=== PATIENT | female | born 1930 | race Caucasian/White ===

== ENCOUNTER → 2016-07-01 | Outpatient (CLI) | payer MEDICARE, BC ==
--- NOTE | 2016-07-01 14:26 | RADRPT ---
PROCEDURE: XR Right hip and pelvis. CLINICAL INDICATION: Right hip pain and pelvic pain. TECHNIQUE: 3 views. Frontal pelvis. Frontal and lateral right hip. COMPARISON: 07/27/2015. FINDINGS: There is no fracture or dislocation. The soft tissues are normal. There are severe degenerative changes of the right hip with joint space narrowing, osteophytes, suba rticular sclerosis, and marked deformity superiorly. 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 The left hip is unremarkable. There is no lytic or blastic lesion. Surgical clips are present overlying the left lower quadrant of the abdomen. IMPRESSION: 1. 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 2. Prior left lower quadrant abdomen surgery. RPTAT: QQ .Colton Perry MD, MD Date Time Electronically viewed and signed by .Colton Perry MD, MD on 07/01/2016 14:26 .R/
== END | disposition home or self-care (01) ==
LOC: HKI 10:40
PROVIDERS: ATTEND Orthopaedic Surgery
DX: M16.11 Unilateral primary osteoarthritis, right hip (principal); M87.051 Idiopathic aseptic necrosis of right femur
CPT/HCPCS: 73502; G0463

== ENCOUNTER → 2016-07-29 | Outpatient (CLI) | payer MEDICARE, BC ==
[~2016-07-29] MED LIST: ACET-141 PO; AMLO-147 PO; BIOT10004 PO; CITRACAL PO; SACC250C PO; SOLI5TAB5 PO; SYN75 PO; VALS160T20 PO
== END | disposition home or self-care (01) ==
LOC: HKI 10:24
PROVIDERS: ATTEND Orthopaedic Surgery
DX: M25.551 Pain in right hip (principal); M16.11 Unilateral primary osteoarthritis, right hip; M87.051 Idiopathic aseptic necrosis of right femur
CPT/HCPCS: 87081; G0463

== ENCOUNTER 2016-08-04 06:27 | Inpatient (IN) | payer MEDICARE, BC ==
--- NOTE | 2016-07-29 19:18 | PREOPHP ---
DATE OF ADMISSION: 07/29/2016 TYPE OF CONSULTATION: Renal. REASON FOR CONSULTATION: Hyponatremia. HISTORY OF PRESENT ILLNESS: This 86-year-old female was originally referred to me by Dr. Santy Campbell, who is the patient's primary care physician and case aide. Dr. Campbell referred this patient to me because of hyponatremia. The patient was being evaluated by him in preparation for an upcoming surgery. The patient is scheduled for a right total hip replacement by Dr. Jigar Davison on 08/04/2016. The patient has severe osteoarthritis of the right hip and has decided to undergo a total hip replacement. The patient had laboratory test done by Dr. Campbell on 07/26/2016, and at that time she was found to have a serum sodium of 131 and a serum chloride of 97. The patient has been otherwise feeling well except for her chronic R hip pain. She denies a history of heart disease , kidney disease , chest pain or shortness of breath . The patient denies taking diuretics. She has not had any diarrhea, nausea, vomiting, etc. PAST MEDICAL HISTORY: Hypertension, hypothyroidism, nocturia, gastroesophageal reflux disease, insomnia, osteoarthritis. CURRENT MEDICATIONS: Include the followin. Amlodipine 10 mg a day. 2. Synthroid 75 mcg a day. 3. Valsartan 160 mg a day. 4. VESIcare 5 mg at bedtime. 5. Zantac 150 mg twice a day. 6. Tramadol 50 mg every 4 hours p.r.n. pain. 7. Tylenol PM at bedtime p.r.n. sleep. 8. Florastor 250 mg twice a day. ALLERGIES: SHE IS ALLERGIC TO PENICILLIN AND SHE HAS HAD PROBLEMS WITH LEVAQUIN CAUSING TENDON WEAKNESS AND PERIPHERAL NEUROPATHY. PAST SURGICAL HISTORY: Remarkable for tonsillectomy, ovarian cysts, cerebral hematoma resected, colon resection for diverticulitis. FAMILY HISTORY: Father is , diagnosed with heart disease. Mother is . Father had heart disease. Mother had dementia. SOCIAL HISTORY: The patient does not smoke. She was a former smoker but has not smoked for at least 10 years or more. She does drink wine once a day. OCCUPATION: Retired teacher. REVIEW OF SYSTEMS: CONSTITUTIONAL: No chills, no weight gain, no loss of appetite, no fever, no weakness, no weight loss, no fatigue. OPHTHALMOLOGIC: She has diminished vision. She does get monthly eye injection in the right eye for some retinal disease, not macular degeneration. CARDIORESPIRATORY: She denies any exertional chest pain, chest pressure, cough. She does have some chronic ankle swelling. GASTROINTESTINAL: She does have some history of gastroesophageal reflux disease. She does have some episodes of diarrhea and/or constipation. NEUROLOGIC: Bilateral lower extremity tingling and numbness. HEMATOLOGIC AND LYMPHATICS: Negative. DERMATOLOGIC: Negative. UROLOGIC: She does have nocturia which is helped by VESIcare. PHYSICAL EXAMINATION: GENERAL: At this time reveals an elderly female in no apparent distress. VITAL SIGNS: Temperature 99.6. Weight of 103. Blood pressure 116/57, heart rate of 70. HEENT: Head: Normocephalic. Eyes: Extraocular muscles intact. Nose and mouth are normal. NECK: Supple. No neck vein distention. HEART: Regular rhythm. No murmurs, gallops, or rubs. ABDOMEN: Soft, nontender. No masses or megaly. EXTREMITIES: Pedal pulses were 2+ bilaterally. She does have bilateral trace ankle edema, right greater than left. LABORATORY DATA: I did do some laboratory tests when I saw the patient. Her serum sodium in my office was 132, potassium 4.8, carbon dioxide 28, chloride 97. A B-natriuretic peptide was 80 , which is normal . Random cortisol was 11.2. Serum osmolality was 281. Urine sodium was 21. Her hemoglobin was 11.6 , hematocrit 35.4. White blood count was low at 2.3, which the patient says she has had a low white blood count for years. IMPRESSION: 1. Hyponatremia. This patient has mild hyponatremia. She is not currently taking any medication that would cause hyponatremia. She does have a low urine sodium which does suggest a salt-retaining state which could also be contributing to her peripheral edema. I was concerned about subclinical CHF ; however , the low BNP is against that diagnosis and her low urine sodium is against a diagnosis of SIADH . Her TSH level and serum cortisol are normal . The amlodipine could be contributing to her lower extremity edema . She did have a cardiac workup in November of 2015. At that time, she had a negative nuclear medicine cardiac stress test. From my standpoint she is cleared for surgery . I would recommend using isotonic solutions perioperatively. I would also try to limit the amount of fluid that she gets to try and correct the hyponatremia . 2. Anemia with iron deficiency. I did recommend to her that she start taking iron supplements . 3. Chronic leukopenia. 4. Hypertension. 5. Spastic urinary bladder. 6. Peripheral neuropathy. 7. Hypothyroidism. PLAN 1. The patient is cleared for upcoming right total hip replacement surgery . 2. Recommend isotonic solutions such as normal saline perioperatively. 3. I will follow the patient postoperatively. Dictated By: LAVON BROWN MD, ND/EDIN Conf#: [id number] DID#: [id number] MTDD
[2016-08-03 11:18] VITALS: Ht 151.1 cm; Wt 46.8 kg
[2016-08-04] VITALS (27 sets, daily range): BP systolic 79–153; BP diastolic 39–68; PULSE 58–72; RESP 10–22
[~2016-08-04] VITALS: Ht 151.1 cm; Wt 46.8 kg
[~2016-08-04 06:27] MED LIST changes: -ACET-141 PO; -AMLO-147 PO; -BIOT10004 PO; -CITRACAL PO; +PAIN COCKTAIL - VANCOMYCIN IRR ONE; -SACC250C PO; -SOLI5TAB5 PO; -SYN75 PO; -VALS160T20 PO
[2016-08-04] MEDS ORDERED: PREGABALIN 300 MG PO X1 PO ONE (06:30)
[2016-08-04] MEDS ORDERED: VANCOMYCIN 1 GM/NS 250 ML X1 BEFORE INCISION IVPB ONE (06:30)
[2016-08-04] MEDS ORDERED: SOD CHLORIDE 0.9% IV ONE (06:30)
[2016-08-04] MEDS ORDERED: oxyCODONE (CR) 10 MG TAB [oxyCONTIN] X1 DOSE PO ONE (06:30)
[2016-08-04] MEDS ORDERED: SOD CHLORIDE 0.9% IVPB ONE ×3 (06:30→17:30)
[2016-08-04] MEDS ORDERED: BUPIVACAINE LIPOSOME/PF 266 MG/20 ML VIAL INFIL ONE (06:30)
[2016-08-04] MEDS ORDERED: LACTATED RINGER'S 1,000 ML IV SCH ×2 (06:30→11:20)
[2016-08-04] MEDS ORDERED: CELECOXIB 400 MG PO X1 DOSE PO ONE (06:30)
[2016-08-04] MEDS ORDERED: TRANEXAMIC ACID IVPB ONE ×3 (06:30→17:30)
[2016-08-04] MEDS ORDERED: TRANEXAMIC ACID IV ONE (06:30)
[2016-08-04] MEDS ORDERED: traMADOL 50 MG TAB X 1 DOSE PO ONE (06:30)
[2016-08-04] MEDS ORDERED: ONDANSETRON 4 MG INJ IV ONE (06:30)
[2016-08-04] MEDS ORDERED: PAIN COCKTAIL-CEFUROXIME IRR SCH ×7 (07:00)
[2016-08-04] MEDS ORDERED: PROPOFOL 20 ML ONE (07:38)
[2016-08-04] MEDS ORDERED: CEFAZOLIN 1 GM INJ ONE (07:38)
[2016-08-04] MEDS ORDERED: NEOSTIGMINE 3 MG/3 ML SYRINGE ONE (07:38)
[2016-08-04] MEDS ORDERED: GLYCOPYRROLATE 0.4 MG INJ ONE (07:38)
[2016-08-04] MEDS ORDERED: ROCURONIUM 50 MG INJ ONE (07:38)
[2016-08-04] MEDS ORDERED: ONDANSETRON 4 MG INJ ONE (07:39)
[2016-08-04] MEDS ORDERED: FENTAnyl 50 MCG/ML VIAL ONE (07:39)
[2016-08-04] MEDS ORDERED: MIDAZOLAM 1 MG/ML 2 ML INJ ONE (07:39)
[2016-08-04] MEDS ORDERED: DEXAMETHASONE 4 MG/ML 1 ML INJ ONE (07:39)
[2016-08-04] MEDS ORDERED: KETOROLAC 30 MG INJ ONE (07:49)
--- NOTE | 2016-08-04 08:12 | HPN ---
Date/Time of Note Date/Time of Note DATE: 08/04/16 TIME: 08:12 Interval H&P Admission Note Pt. seen H&P reviewed: No system changes No change from H&P on 07/29/16 by VIOLET Thurman MD Aug 04, 2016 08:12
[2016-08-04] MEDS ORDERED: VALS160T20 PO (08:31)
[2016-08-04] MEDS ORDERED: AMLO-147 PO (08:32)
[2016-08-04] MEDS ORDERED: SYN75 PO (08:32)
[2016-08-04] MEDS ORDERED: SOLI5TAB5 PO (08:35)
[2016-08-04] MEDS ORDERED: ACET-141 PO (08:35)
[2016-08-04] MEDS ORDERED: VANCOMYCIN 1 GM INJ ONE (08:35)
[2016-08-04] MEDS ORDERED: POLYMYXIN B 500000 UNIT INJ ONE (08:35)
[2016-08-04] MEDS ORDERED: SODIUM CL BACTERIOSTATIC 30 ML INJ ONE (08:35)
[2016-08-04] MEDS ORDERED: BIOT10004 PO (08:36)
[2016-08-04] MEDS ORDERED: CITRACAL PO (08:36)
[2016-08-04] MEDS ORDERED: SACC250C PO (08:36)
[2016-08-04] MEDS ORDERED: HEPARIN 1000 UNITS/ML 10 ML INJ ONE (08:38)
[2016-08-04] MEDS ORDERED: BACITRACIN 50000 UNITS INJ ONE (08:52)
[2016-08-04] MEDS ORDERED: BACITRACIN 50000 UNITS INJ IRR ONE (09:51)
[2016-08-04] MEDS ORDERED: VANCOMYCIN 1 GM INJ IRR ONE (09:52)
[2016-08-04] MEDS ORDERED: POLYMYXIN B 500000 UNIT INJ IRR ONE (09:52)
[2016-08-04] MEDS ORDERED: HEPARIN 1000 UNITS/ML 10 ML INJ IRR ONE (09:54)
[2016-08-04] MEDS ORDERED: ETOMIDATE 20 MG INJ ONE (09:57)
[2016-08-04] MEDS ORDERED: PROPOFOL 100 ML ONE (09:57)
[2016-08-04] MEDS ORDERED: ONDANSETRON 4 MG INJ IV PRN ×2 (10:00→11:30)
[2016-08-04] MEDS ORDERED: EPHEDrine SULFATE 50 MG/5 ML SYG IV PRN (10:00)
[2016-08-04] MEDS ORDERED: OXYCODONE/ACETAMINOPHEN (5/325) TAB PO PRN ×2 (10:00)
[2016-08-04] MEDS ORDERED: LABETALOL HCL 20MG INJ IV PRN (10:00)
[2016-08-04] MEDS ORDERED: MEPERIDINE 25 MG INJ IV PRN (10:00)
[2016-08-04] MEDS ORDERED: MIDAZOLAM 1 MG/ML 2 ML INJ IV PRN (10:00)
[2016-08-04] MEDS ORDERED: DIPHENHYDRAMINE 50 MG INJ IV PRN (10:00)
[2016-08-04] MEDS ORDERED: hydrALAzine 20 MG INJ IV PRN (10:00)
[2016-08-04] MEDS ORDERED: TRIMETHOBENZAMIDE 100 MG/ML VIAL IM PRN (10:00)
[2016-08-04] MEDS ORDERED: HYDROmorphONE (0.2 MG/ML) 10ML SYG IV PRN ×3 (10:00)
[2016-08-04] MEDS ORDERED: FENTAnyl 50 MCG/ML VIAL IV PRN ×3 (10:00)
[2016-08-04] MEDS ORDERED: SODIUM CL BACTERIOSTATIC 30 ML INJ SC ONE (10:51)
[2016-08-04] MEDS ORDERED: HYDROCODONE/APAP (5/325) TAB PO PRN (11:30)
[2016-08-04] MEDS ORDERED: ASPIRIN (EC) 325 MG TAB PO ONE (11:30)
[2016-08-04] MEDS ORDERED: HYDROmorphONE 1 MG/ML SYG IV PRN (11:30)
[2016-08-04] MEDS ORDERED: DIPHENHYDRAMINE 25 MG CAP PO PRN (11:30)
[2016-08-04] MEDS ORDERED: BISACODYL 10 MG SUPP PR PRN (11:30)
[2016-08-04] MEDS ORDERED: NACL 0.9% 3 ML SYG IV SCH (11:30)
[2016-08-04] MEDS ORDERED: NA PHOSPHATE/BIPHOS 133 ML ENEMA PR PRN (11:30)
--- NOTE | 2016-08-04 11:30 | OPR ---
Date/Time of Note Date/Time of Note DATE: 08/04/16 TIME: 11:29 Operative Report Free Text/Dictation Dictation # [id number] Preoperative Diagnosis Right Hip OA Postoperative Diagnosis Same Operation/Procedure Performed Right Anterior DON Surgeon: VIOLET MCKENNA MD assistant shift supervisor: CIERRA HUTTON PA-C Anesthesia: general, spinal Estimated Blood Loss: 250 - 300 ml's Specimens Femoral Head Complications: None VIOLET MCKENNA MD Aug 04, 2016 11:30
--- NOTE | 2016-08-04 11:50 | OPR ---
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 OPERATION PERFORMED: Right anterior total hip arthroplasty. SURGEON: Violet Davison MD PRODUCTION AIDE: ERICA Montoya COMPONENTS USED: DePuy size 48 mm Gription Sparland cup, 48/32 neutral AltrX polyethylene liner siz e 4 standard DISPOSITION: The patient tolerated the procedure well and was taken to the recovery room in stable condition. INDICATIONS: The patient is an 86-year-old woman who has had worsening pain in the right hip with r adiographic evidence of both osteonecrosis with collapse and secondary osteoarthritic changes. She has not improved with nonsurgical means of treatment and I felt she would benefit from a total hip a rthroplasty through an anterior approach. I felt the patient would benefit from a total hip arthroplasty through an anterior approach. The risks, benefits, and alternatives of the procedure were explained in detail to the patient. I e xplained the risks of the surgery to include, but not be limited to: bleeding and possible need for blood transfusion; infection; pain; stiffness; neurovascular injury with possible numbness, weakness , and/or paralysis anywhere from the hip down to the toes; fracture; instability; dislocation; leg l ength inequality; wear and/or loosening of the prosthesis and possible need for future revision; blo od clots; pulmonary embolism; and anesthetic complications such as heart attack, stroke, GI bleed, p neumonia, and/or . Ample time was allowed for the patient to ask questions, all of which were addressed and answered. The patient understood the risks involved and wished to proceed. Informed c onsent was signed prior to the procedure. PROCEDURE: The patient's right hip was initialed with a marking pen in the preoperative area to iden tify the correct operative site. The patient was brought to the operating room and transferred from the [facility] to the [facility] table where a spinal anesthetic was administered. The patient was then anesthetized and intubated. A Goode catheter was placed. Both feet were placed into well-padd ed boots which were then placed into the leg holders of the traction booms. A timeout was performed to confirm that the right side was the correct operative site. The patient was given 2 g of intrav enous Ancef within one hour prior to the procedure. The operative hip was prepped and draped in the usual sterile fashion. A 10 cm oblique incision was made over the anterior aspect of the hip and carried down through subcu taneous tissue and fat with sharp dissection. The tensor fascia aakash was incised along the length o f the wound. The tensor fascia muscle was retracted laterally and the sartorius medially. The anter ior circumflex vessels were identified and tied off with 2-0 silk suture and coagulated with the [employer] software engineer web applications. The rectus femoris was elevated off the anterior capsule and an anterior capsu lectomy performed. A femoral neck osteotomy was made and the head removed from the acetabulum. The acetabulum was denuded of cartilage circumferentially, as was the femoral head. Retractors were pl aced around the acetabulum. The remnants of the labrum and ligamentum teres were excised. I reamed the acetabulum to the medial wall and then went into an anatomic position and increased the reamer size in 2 mm increments until I got a good bite and was down to bleeding subchondral bone. The Sparland cup was opened and impacted into the acetabulum and sat flush circumferentially, gettin g a good bite. C-arm imaging showed it had about 40 to 45 degrees of abduction and 20 degrees of ant eversion. The real liner was opened and impacted into the acetabulum and sat flush circumferentiall y. Attention was turned towards the femur. The operative leg was carefully lowered to the floor with the leg adducted. The foot was then exter sanjuana rotated to approximately 110 degrees. A posteromedial release was performed to optimize expos ure. The femoral hook was placed underneath the proximal femur and the hydraulic lift was then used to elevate the femur up out of the wound. The [employer] cutter osteotome was used to remove the remai brett overhanging greater trochanter. The femur was then broached, going up in one size increments u ntil it sat flush with the neck cut and a stable fit was achieved. The trial neck and head were ass embled and reduced into the acetabulum. Fluoroscopic imaging showed the components to be in good pos ition and the leg lengths and offsets to be equal. At this point, the trial was dislocated and the trial broach removed. The canal was irrigated and d ried. The real stem was opened and impacted into the femur. The trunnion was irrigated and dried, a nd the real femoral head was impacted onto the trunnion, and reduced into the acetabulum. The soft tissues were infiltrated with a mixture of 150 mg of 0.5% Bupivacaine, 8 mg of Duramorph, 3 00 mcg of epinephrine, 30 mg of Toradol, 100 mcg of clonidine, 750 mg of cefuroxime and 86 mL of nor mal saline, followed by an injection of 266 mg of liposomal Bupivacaine. At this point the hip was irrigated with a mixture of betadine/saline and then antibiotic saline with pulsatile lavage. A Hem ovac drain was placed in the deep portion of the wound and brought out the anterolateral thigh. Ther e was good hemostasis. The tensor fascia aakash was repaired with a running #1 Vicryl. The deep fat layer was irrigated and closed with 2-0 Stratafix and the subcutaneous layer closed with 3-0 Vicryl and the skin was closed with laurie and then sealed with Dermabond. The drain was secured with 3-0 nylon. The sponge and needle counts were correct at the end of the case. The wound was covered with an occ lusive dressing. The patient was awakened, extubated, and taken to the recovery room in stable cond ition. Dictated By: VIOLET AHUMADA/EDIN Conf#: [id number] DID#: [id number]
--- NOTE | 2016-08-04 11:54 | PN ---
Date/Time of Note Date/Time of Note DATE: 08/04/16 TIME: 11:53 Assessment/Plan Assessment/Plan Assessment/Plan Stable in PACU, s/p right anterior DON -continue Ancef until drains removed -pain meds as needed -ASA/SCDs for DVT prophylaxis -OOB with PT -check AM labs -monitor drain -d/c le in AM XR of the right hip demonstrates good alignment with no fractures or dislocations identified Subjective 24 Hr Interval Summary Stable in PACU. Denies pain. Moving all extremities. Exam/Review of Systems Vital Signs Vitals Vital Signs Date Time Temp Pulse Resp B/P Pulse Ox O2 Delivery O2 Flow Rate FiO2 08/04/16 11:38 66 13 116/54 98 Room Air 08/04/16 11:37 98.4 Exam Free Text/Dictation Hemovac: minimal Dressing dry Incision clean, dry, and intact without redness or drainage 5/5 Quadriceps, Tibialis Anterior, EHL, Gastroc, Soleus, Peroneals Normal sensation Palpable DT/PT, CR <2 sec No distal edema CIERRA HUTTON PA-C Aug 04, 2016 11:54
[2016-08-04 11:55] LABS: ADD UMIC YES; UR BILIRUBIN (Dip) NEGATIVE (NEGATIVE); UR BLOOD (Dip) TRACE (NEGATIVE); UR CLARITY CLEAR (CLEAR); UR COLOR LT. YELLOW (YELLOW); UR GLUCOSE (Dip) NEGATIVE (NEGATIVE); UR KETONES (Dip) NEGATIVE (NEGATIVE); UR LEUKOCYTE ESTERASE (Dip) NEGATIVE (NEGATIVE); UR NITRITE (Dip) NEGATIVE (NEGATIVE); UR TOTAL PROTEIN (Dip) NEGATIVE (NEGATIVE); UR UROBILINOGEN (Dip) 0.2 E.U./dL (0.1-1.0)
[2016-08-04 12:11] LABS: HEMATOCRIT 31.4 % (37.0-47.0)
[2016-08-04] MEDS: CEFAZOLIN 2 GM/50 ML (PMX) 50 ML IVPB SCH ×2 (12:22→21:02)
[2016-08-04] MEDS: traMADol 50 MG TAB PO SCH ×3 (12:28→23:37)
[2016-08-04 12:29] LABS: CALCIUM 8.3 mg/dl (8.4-10.2); CREATININE 0.79 mg/dl (0.44-1.00); POTASSIUM 4.1 mmol/L (3.5-5.1)
[2016-08-04 12:40] LABS: URINE RBCS 0-2 /HPF (0)
--- NOTE | 2016-08-04 13:23 | RADRPT ---
PROCEDURE: XR Pelvis. CLINICAL INDICATION: Hip pain TECHNIQUE: Single low AP view of the pelvis. COMPARISON: July 01, 2016 FINDINGS: Right hip replacement is identified. The prosthetic components are in appropriate position and alig nment. The osseous structures are intact. No destructive bony lesions are observed. Osteopenia is observed. Mild narrowing of the left hip joint is identified. Surgical drain is identified over th e right hip. Soft tissue air over the right hip is procedural in nature. Goode catheter is seen ov er the lower pelvis.. IMPRESSION: Right hip replacement. Prosthetic components are in appropriate position and alignment. Mild osteoarthritis of the left hip. Osteopenia. RPTAT: AA .Diony Phillip MD, Date Time Electronically viewed and signed by .Diony Phillip MD, on 08/04/2016 13:23 .P/
--- NOTE | 2016-08-04 13:24 | RADRPT ---
PROCEDURE: X-ray fluoroscopy guidance CLINICAL INDICATION: Right hip replacement, fluoroscopic guidance TECHNIQUE: Fluoroscopic guidance was utilized for an intraoperative procedure. COMPARISON: None available FINDINGS: Fluoroscopic guidance was utilized for and intraoperative procedure. 0.6 minutes of fluoroscopy time was utilized for the procedure. 18 x-ray images were obtained during the procedure in progress. Fin al images demonstrate a right hip replacement. Prosthetic components appear in appropriate position and alignment. IMPRESSION: X-ray fluoroscopic guidance utilized for intraoperative procedure. Right hip replacement with prosthetic components in appropriate position and alignment. Please see procedure note for details. RPTAT: AA .Diony Phillip MD, Date Time Electronically viewed and signed by .Diony Phillip MD, on 08/04/2016 13:24 .P/
--- NOTE | 2016-08-04 13:46 | RADRPT ---
PROCEDURE: XR Right Hip. CLINICAL INDICATION: Status post hip replacement TECHNIQUE: AP view of the right hip was obtained. The images reviewed on a PACS workstation. COMPARISON: July 01, 2016 FINDINGS: Right hip replacement is identified. Prosthetic components are in appropriate position and alignmen t. No fractures or destructive lesions are observed. Surgical drain is seen in the hip. Soft tissu e air is procedural in nature. IMPRESSION: Status post right hip replacement. Prosthetic components are in appropriate position and alignment. RPTAT: AA .Diony Phillip MD, Date Time Electronically viewed and signed by .Diony Phillip MD, on 08/04/2016 13:46 .P/
[2016-08-04] MEDS: SOD CHLORIDE 0.9% 1,000 ML IV SCH ×2 (14:32→23:37)
--- NOTE | 2016-08-04 14:38 | CONS ---
DATE OF ADMISSION: 08/04/2016 DATE OF CONSULTATION: 08/04/2016 TYPE OF CONSULTATION: Renal REASON FOR CONSULTATION: Hyponatremia. HISTORY OF PRESENT ILLNESS: This 86-year-old female is now postop a right total hip arthroplasty by Dr. Jigar Davison. The patient has just transferred from the recovery room to the orthopedic floor. She is awake and alert and answers questions appropriately. The patient is with her daughter and niece. The patient says that she feels well. She denies any chest pain or shortness of breath. I did see the patient preoperatively because of hyponatremia. She was referred to me by her primary care bonus clerk, Dr. Santy Campbell. The patient had a serum sodium of 131 in his office. I repeated it, it was 132. She had a normal TSH and cortisol level. I felt that her hyponatremia was dilutional. She did have some lower extremity edema. She does not have evidence of congestive heart failure and she had a low urine sodium. I recommended that the patient limit her fluid intake. She was cleared for this surgery. The patient denies a history of heart disease, kidney disease, chest pain or shortness of breath. The patient was not on diuretics and her preoperative medication was reviewed and was not thought to be causing the hyponatremia. PAST MEDICAL HISTORY: Remarkable for hypertension, hypothyroidism, nocturia, gastroesophageal reflux disease, insomnia and osteoarthritis. CURRENT MEDICATIONS: Include the followin. Amlodipine 10 mg a day. 2. Synthroid 75 mcg a day. 3. Valsartan 160 mg a day. 4. VESIcare 5 mg at bedtime. 5. Zantac 150 mg twice a day. 6. Tramadol 50 mg every 4 hours p.r.n. pain. 7. Tylenol PM at bedtime. 8. Florastor 250 mg twice a day. ALLERGIES: 1. SHE IS ALLERGIC TO PENICILLIN. 2. SHE HAS HAD PROBLEMS WITH LEVAQUIN CAUSING TENDON WEAKNESS AND PERIPHERAL NEUROPATHY. PAST SURGICAL HISTORY: Remarkable for tonsillectomy, ovarian cysts, cerebral hematoma resected, colon resection for diverticulitis. FAMILY HISTORY: Father is with heart disease. Mother is with dementia. SOCIAL HISTORY: The patient does not smoke. She was a former smoker, but has not smoked for at least 10 years. She does drink wine once a day. OCCUPATION: Retired teacher. PHYSICAL EXAMINATION: GENERAL: At this time reveals a well-developed female in no apparent distress. VITAL SIGNS: Her latest vital signs: Pulse 62, respirations 12, blood pressure 103/40, O2 saturation 96% on room air. HEENT: Head normocephalic. Eyes: Extraocular muscles intact. Nose and mouth are normal. NECK: Supple. No neck vein distention. LUNGS: Clear to auscultation. HEART: Regular rhythm. No murmurs, gallops or rubs. ABDOMEN: Soft, nontender. EXTREMITIES: No peripheral edema. IMPRESSION: 1. Hyponatremia. 2. Relative hypotension. 3. History of hypertension. 4. Hypothyroidism. 5. Spastic bladder. PLAN: 1. I will change the patient's IV fluid to normal saline. I think an isotonic solution would be better for her in view of the history of hyponatremia. 2. Resume some routine medications. I will hold antihypertensive medications for now since her blood pressure is relatively low. 3. Postoperative total hip replacement protocol. Check laboratory tests in am . 4. I will follow the patient along with you. Dictated By: LAVON BROWN MD, ND/EDIN Conf#: [id number] DID#: [id number] HARIKA
[2016-08-04] MEDS ORDERED: EXPAREL NOTE (BUPIVICAINE LIPOSOMAL) XX SCH (16:00)
[2016-08-04] MEDS: PANTOPRAZOLE (EC) 40 MG TAB PO SCH (18:00)
[2016-08-04] MEDS: DOCUSATE SODIUM 100 MG CAP PO SCH (21:02)
[2016-08-05] MEDS: CEFAZOLIN 2 GM/50 ML (PMX) 50 ML IVPB SCH (04:03)
[2016-08-05 04:09] VITALS: BP 111/54; PULSE 65; RESP 16
[2016-08-05 05:33] LABS: HEMATOCRIT 29.4 % (37.0-47.0); HEMOGLOBIN 9.4 g/dl (12.0-16.0)
[2016-08-05 05:43] LABS: CALCIUM 8.4 mg/dl (8.4-10.2); CREATININE 0.75 mg/dl (0.44-1.00); POTASSIUM 4.7 mmol/L (3.5-5.1)
[2016-08-05] MEDS: traMADol 50 MG TAB PO SCH ×3 (06:00→17:52)
[2016-08-05] MEDS: LEVOTHYROXINE 75 MCG TAB PO SCH (06:08)
[2016-08-05] MEDS: PANTOPRAZOLE (EC) 40 MG TAB PO SCH ×2 (06:08→17:52)
--- NOTE | 2016-08-05 06:56 | PREOPHP ---
DATE OF ADMISSION: 08/04/2016 The patient is scheduled for surgical procedure, a right anterior total hip arthroplasty with Dr. Rich Flores. The patient has severe pain in her right hip with osteoarthritis. The patient carries t he diagnoses of hypertension, hypothyroidism, mitral insufficiency, history of a subdural hematoma w ith evacuation and craniotomy. The patient has tendonitis of the feet. She has mild mitral and aor tic insufficiency, history of diverticular disease, history of coronary arterial sclerosis, history of presbycusis, history of scarlet fever at age 7, and history of chronic leukopenia. Most recently , the patient also had a diagnosis of hyponatremia, and she was seen by Dr. Leroy Givens for preo perative clearance. PAST SURGICAL HISTORY: The patient's surgeries included the craniotomy, colon resection for diverti cular disease, tonsillectomy, ovarian resection, and breast biopsy. The patient has had surgeries o n her anterior tibial ligaments, right and left, secondary to tears. ALLERGIES: SHE IS ALLERGIC TO SULFA, PENICILLIN, AND LEVAQUIN. FAMILY HISTORY: The patient's mother at 96 with dementia. The patient's father of myocar dial infarction at 88. The patient has a 30 pack year cigarette smoking history. She has 1 alcohol beverage a day. She was born in [place], [place]. REVIEW OF SYSTEMS: HEENT: The patient denies double vision, blurring of vision. She denies diminished hearing, ringin g in the ears. She denies postnasal drip or nosebleeds. She reports some hoarseness. CHEST: Otherwise, she denies sore throat or symptoms of the upper respiratory system. The patient denies cough, sputum production. She has had some chest pain but has had a negative stress test mos t recently. GASTROINTESTINAL: The patient denies gastrointestinal symptoms. GENITOURINARY: The patient reports nocturia. She is currently on VesiCare. The patient is a gravi da 0, para 0, AB 0. MUSCULOSKELETAL: The patient has some cramps in her hands. She also has severe pain in her hip as previously noted. SKIN: The patient denies rashes. NEUROLOGIC: The patient denies numbness, weakness, tingling, gait or speech disturbance. She denie s excessive bleeding. PHYSICAL EXAMINATION: GENERAL: Reveals a pleasant elderly patient who is awake, alert, and cooperative. VITAL SIGNS: Her blood pressure is 140/70. The patient is 4 feet 10 inches. She weighs 102 pounds . HEENT: The patient's pupils are equal at 2 mm. The patient has otto irises. The patient uses hea ring aids right and left side. Mouth is unremarkable. NECK: Unremarkable. CHEST: Reveals no rales, rhonchi, wheezes, or adventitious breath sounds. CARDIAC: Reveals a regular rhythm. No gallops, no murmurs. ABDOMEN: Reveals a soft abdomen. No masses. No tenderness. EXTREMITIES: No edema. LYMPHATIC: There is on neck, axillary, or groin lymphadenopathy. NEUROLOGIC: Cranial nerves II through XII are within normal limits. The patient has 2+ deep tendon reflexes. Good ____, good vibratory sense. The patient is not ambulating because of pain in her h ip. Dr. Santy Rubi MD dictating Pre-Opeerative History and Physical for Dr. Violet Davison MD. Dictated By: VIOLET AHUMADA/NTS Conf#: [id number] DID#: [id number]
[2016-08-05 07:00] VITALS: BP 119/62; RESP 18
--- NOTE | 2016-08-05 08:13 | PDOCDIS ---
Discharge Instructions DIAGNOSIS Discharge Diagnosis: s/p right anterior DON CONDITION Patient Condition: Good HOME CARE INSTRUCTIONS: Diet Instructions: RegularSpecial Diet: REGULAR DIET ACTIVITY: Activity Restrictions: Slowly Increase Activity Rest between Activity Avoid heavy lifting Do not operate Machinery Do not operate Power Tool Avoid Heavy Housework Keep Limb Elevated Weight Bearing Bathing Restrictions: Shower FOLLOW UP/APPOINTMENTS Appointments follow up in the office on 08/15/16 REFERRALS Other Referrals S/P Anterior DON Physical Therapy: Three times per week at home x 2 weeks Daily in Rehab/SNF WB STATUS: WBAT Strengthening exercises for both upper and un-operated lower extremities. 1. Gait training with front wheeled walker 2. Wide base gait, no pivot turns. 3. Abductor strengthening. 4. Quadriceps and hamstring strengthening. 5. May switch to cane in contra lateral hand 6 weeks after surgery. 6. Physical Therapy can open case if nursing is not available. 7. Ice Packs while at rest to surgical wound for 20 minutes, 3 times/day. 8. Patient requires mobile SCDs to reduce risk of developing DVT following DON. Patient will use the mobile SCDs for 30 days postoperatively. Hip Precautions: No posterior hip precautions. Bathing assistance by home health aide twice weekly if Medicare patient. Occupational Therapy: Evaluation for assistive devices and ADL training. Wound Care: Keep incision dry & covered with Tegaderm until first visit with Dr. Davison Anticoagulation Orders: Enteric Coated Aspirin 325 mg po bid x 6 weeks from date of surgery Follow-up:Call for an appointment with Dr. Davison in 1 week after discharged from hospital at DME Orders: NHI, 3-in-1 Commode, Mobile SCDs CIERRA HUTTON PA-C Aug 05, 2016 08:13
[2016-08-05] MEDS ORDERED: ASPI325T32 PO (08:15)
[2016-08-05] MEDS ORDERED: PANT40TA4 PO (08:15)
[2016-08-05] MEDS ORDERED: HYDR-3498 PO (08:15)
[2016-08-05] MEDS ORDERED: TRAM50TA2 PO (08:15)
[2016-08-05] MEDS: DOCUSATE SODIUM 100 MG CAP PO SCH ×2 (08:53→21:01)
[2016-08-05] MEDS: ASPIRIN (EC) 325 MG TAB PO SCH ×2 (08:53→21:00)
[2016-08-05] MEDS ORDERED: SOLIFENACIN 5 MG TAB PO SCH (09:00)
[2016-08-05] MEDS ORDERED: VALSARTAN 160 MG TAB PO SCH (09:00)
[2016-08-05] MEDS ORDERED: AMLODIPINE 10 MG TAB PO SCH (09:00)
--- NOTE | 2016-08-05 09:00 | PN ---
Date/Time of Note Date/Time of Note DATE: 08/05/16 TIME: 08:59 Assessment/Plan Lines/Catheters IV Catheter Type (from Nrsg): Peripheral IV Goode in Place (from Nrsg): Yes Assessment/Plan Assessment/Plan Stable POD #1, s/p right anterior DON -d/c abx -pain meds as needed -ASA/SCDs -drain removed -OOB with PT -check AM labs -d/c planning. Will plan to go to [facility] upon discharge Subjective 24 Hr Interval Summary No acute overnight events. Denies pain. Did not start PT yesterday. H&H stable. VSS, afebrile. Would like to go to [facility] upon discharge. Exam/Review of Systems Vital Signs Vitals Vital Signs Date Time Temp Pulse Resp B/P Pulse Ox O2 Delivery O2 Flow Rate FiO2 08/05/16 07:00 97.7 62 18 119/62 95 08/05/16 04:09 Room Air Intake and Output 08/04/16 08/04/16 08/05/16 15:00 23:00 07:00 Intake Total 2700 ml 220 ml 850 ml Output Total 970 ml 800 ml 770 ml Balance 1730 ml -580 ml 80 ml Exam Free Text/Dictation Hemovac: 140cc Dressing dry Incision clean, dry, and intact without redness or drainage 5/5 Quadriceps, Tibialis Anterior, EHL, Gastroc, Soleus, Peroneals Normal sensation Palpable DT/PT, CR <2 sec No distal edema Results Result Diagram: 08/05/1641908/05/16419 CIERRA HUTTON PA-C Aug 05, 2016 09:00
--- NOTE | 2016-08-05 09:13 | CONS ---
Date/Time of Note Date/Time of Note DATE: 08/05/16 TIME: 09:09 Assessment/Plan Assessment/Plan Chief Complaint/Hosp Course 1. She is 1 day postop a right total hip arthroplasty , her blood pressure is in the normal range. I will hold her antihypertensive medication for 1 more day. 2. Her laboratory tests are acceptable and her serum sodium is normal. 3. She does have a history of anemia and iron deficiency. I will check her iron level today and consider Ferrlicit Problems: Consultation Date/Type/Reason Admit Date/Time Aug 04, 2016 at 06:27 Initial Consult Date 24 HR Interval Summary Free Text/Dictation She is 1 day postop a right total hip arthroplasty. She is awake and responsive. She has no complaints. Constitutional: improved, no complaints Exam/Review of Systems Vital Signs Vitals Vital Signs Date Time Temp Pulse Resp B/P Pulse Ox O2 Delivery O2 Flow Rate FiO2 08/05/16 07:00 97.7 62 18 119/62 95 08/05/16 04:09 Room Air Intake and Output 08/04/16 08/04/16 08/05/16 14:59 22:59 06:59 Intake Total 2700 ml 220 ml 850 ml Output Total 970 ml 800 ml 770 ml Balance 1730 ml -580 ml 80 ml Exam Constitutional: alert, oriented, well developed Respiratory: clear to auscultation, normal air movement Cardiovascular: regular rate and rhythm Gastrointestinal: soft Musculoskeletal: nl extremities to inspection Results Result Diagram: 08/05/16 0420 08/05/16 0420 Results 24 hrs Laboratory Tests Test 08/04/16 11:29 08/04/16 12:00 08/04/16 12:02 08/05/16 04:20 Urine Color LT. YELLOW Urine Clarity CLEAR Urine pH 6.0 Urine Specific [place] 1.010 Urine Ketones NEGATIVE Urine Nitrite NEGATIVE Urine Bilirubin NEGATIVE Urine Urobilinogen 0.2 E.U./dL Urine Leukocyte Esterase NEGATIVE Urine Microscopic RBC 0-2 Urine Microscopic WBC NONE SEEN Urine Hemoglobin TRACE Urine Glucose NEGATIVE Urine Total Protein NEGATIVE Sodium Level 137 138 Potassium Level 4.1 4.7 Chloride Level 108 108 Carbon Dioxide Level 23 23 Anion Gap 10 12 Blood Urea Nitrogen 19 18 Creatinine 0.79 0.75 Glucose Level 152 121 Calcium Level 8.3 L 8.4 Hemoglobin 10.0 L 9.4 L Hematocrit 31.4 L 29.4 L Test 08/05/16 05:32 Lab Scanned Report REFERENCE LAB Medications Medications Current Medications Miscellaneous Information 1 ea NOTE XX ; Start 08/04/16 at 16:00; Stop 08/08/16 at 15:59 Tramadol HCl (Ultram) 50 mg Q6 PO Last administered on 08/04/16 23:37; Admin Dose 50 MG; Start 08/04/16 at 12:00; Stop 08/07/16 at 11:59 Acetaminophen/ Hydrocodone Bitart ([place] (5/325)) 1 tab Q4H PRN PO PAIN LEVEL 1 -3; Start 08/04/16 at 11:30 Acetaminophen/ Hydrocodone Bitart ([place] (5/325)) 2 tab Q4H PRN PO PAIN LEVEL 4 -7; Start 08/04/16 at 11:30 Hydromorphone HCl (Dilaudid) 1 mg Q3H PRN IV PAIN LEVEL 8-10; Start 08/04/16 at 11:30 Ondansetron HCl (Zofran Inj) 4 mg Q6H PRN IV NAUSEA AND/OR VOMITING; Start at 11:30 Bisacodyl (Dulcolax Supp) 10 mg Q12H PRN [place] CONSTIPATION; Start 08/04/16 at 11: 30 Magnesium Hydroxide (Milk Of Mag) 30 ml BID PRN PO CONSTIPATION; Start at 11:30 Sodium Biphosphate/ Sodium Phosphate (Fleet Enema) 133 ml DAILY PRN [place] CONSTIPATION; Start 08/04/16 at 11:30 Docusate Sodium (Colace) 100 mg BID PO Last administered on 08/05/16 08:53; Admin Dose 100 MG; Start 08/04/16 at 21:00 Diphenhydramine HCl (Benadryl) 25 mg Q6H PRN PO PRURITUS; Start 08/04/16 at 11: 30 Aspirin (Ecotrin) 325 mg BID PO Last administered on 08/05/16 08:53; Admin Dose 325 MG; Start 08/05/16 at 09:00 Pantoprazole 40 mg 40 mg BID@06,18 PO Last administered on 08/05/16 06:08; Admin Dose 40 MG; Start 08/04/16 at 18:00 Sodium Chloride (NS) 1,000 ml @ 100 mls/hr Q10H IV Last administered on t 23:37; Admin Dose 100 MLS/HR; Start 08/04/16 at 14:00 LAVON BROWN MD Aug 05, 2016 09:13
[2016-08-05] MEDS: SOD CHLORIDE 0.9% 1,000 ML IV SCH ×2 (09:38→21:01)
[2016-08-05 09:45] LABS: IRON 16 ug/dl (35-150)
[2016-08-05 09:55] LABS: TOTAL IRON BINDING CAPACITY 228 ug/dl (241-421)
[2016-08-05 10:07] LABS: ADD UMIC NO; UR BILIRUBIN (Dip) NEGATIVE (NEGATIVE); UR BLOOD (Dip) NEGATIVE (NEGATIVE); UR CLARITY CLEAR (CLEAR); UR COLOR LT. YELLOW (YELLOW); UR GLUCOSE (Dip) NEGATIVE (NEGATIVE); UR KETONES (Dip) NEGATIVE (NEGATIVE); UR LEUKOCYTE ESTERASE (Dip) NEGATIVE (NEGATIVE); UR NITRITE (Dip) NEGATIVE (NEGATIVE); UR TOTAL PROTEIN (Dip) NEGATIVE (NEGATIVE); UR UROBILINOGEN (Dip) 0.2 E.U./dL (0.1-1.0)
[2016-08-05] MEDS: HYDROCODONE/APAP (5/325) TAB PO PRN (15:40)
[2016-08-05 16:00] VITALS: BP 112/58; PULSE 68
[2016-08-05 19:24] VITALS: BP 95/44; RESP 18
[2016-08-05] MEDS: SOD FERRIC GLUC COMPLX 125 MG in SOD CHLORIDE 0.9% 100 ML IVPB SCH (21:00)
[2016-08-05] MEDS: MAGNESIUM HYDROXIDE 30ML CUP PO PRN (21:15)
[2016-08-06] MEDS: traMADol 50 MG TAB PO SCH ×4 (00:16→17:56)
[2016-08-06 05:37] LABS: CREATININE 0.92 mg/dl (0.44-1.00)
[2016-08-06 05:52] LABS: HEMATOCRIT 23.9 % (37.0-47.0)
[2016-08-06] MEDS: PANTOPRAZOLE (EC) 40 MG TAB PO SCH ×2 (06:08→17:56)
[2016-08-06] MEDS: LEVOTHYROXINE 75 MCG TAB PO SCH (06:09)
[2016-08-06] MEDS: SOD CHLORIDE 0.9% 1,000 ML IV SCH ×2 (06:10→21:44)
[2016-08-06 08:15] VITALS: BP 111/51; RESP 18
[2016-08-06] MEDS: DOCUSATE SODIUM 100 MG CAP PO SCH ×2 (09:04→20:45)
[2016-08-06] MEDS: ASPIRIN (EC) 325 MG TAB PO SCH ×2 (09:04→20:45)
[2016-08-06] MEDS: HYDROCODONE/APAP (5/325) TAB PO PRN (09:05)
--- NOTE | 2016-08-06 13:09 | PN ---
Date/Time of Note Date/Time of Note DATE: 08/06/16 TIME: 13:07 Assessment/Plan Lines/Catheters IV Catheter Type (from Nrsg): Peripheral IV Goode in Place (from Nrsg): Yes Assessment/Plan Assessment/Plan POD # 2. Low h/h from operative blood loss. Asymptomatic. -Observe h/h. Transfuse if hb goes down further and/or patient becomes symptomatic -OOB with PT -Pain meds -ASA/SCDs for DVT prophylaxis -D/C to [facility] Rehab in another day or so Subjective 24 Hr Interval Summary Resting comfortably. Minimal pain. Was OOB with PT earlier. No dizziness. No CP/ SOB. Exam/Review of Systems Vital Signs Vitals Vital Signs Date Time Temp Pulse Resp B/P Pulse Ox O2 Delivery O2 Flow Rate FiO2 08/06/16 08:15 97.9 76 18 111/51 93 08/05/16 04:09 Room Air Intake and Output 08/05/16 08/05/16 08/06/16 15:00 23:00 07:00 Intake Total 500 ml 1950 ml 1250 ml Output Total 600 ml 650 ml Balance 500 ml 1350 ml 600 ml Exam Free Text/Dictation Dressing dry and changed Incision clean, dry, and intact without redness or drainage Thigh soft 5/5 Quadriceps, Tibialis Anterior, EHL, Gastroc Soleus, Peroneals Normal sensation Palpable DP/PT, CR < 2 Sec No distal edema Results Result Diagram: 08/06/16 0425 08/06/16 0425 VIOLET MCKENNA MD Aug 06, 2016 13:09
[2016-08-06] MEDS: MAGNESIUM HYDROXIDE 30ML CUP PO PRN (17:56)
[2016-08-06 19:20] VITALS: BP 95/49; RESP 18
--- NOTE | 2016-08-06 20:43 | CONS ---
Date/Time of Note Date/Time of Note DATE: 08/06/16 TIME: 16:41 Assessment/Plan Assessment/Plan Additional Assessment/Plan 1. S/p right total hip arthroplasty , her blood pressure is in the normal range. 2. Mild hyponatremia, continue IV normal saline 3. Anemia with lower Hb, low TSat. Start Ferrlecit Consultation Date/Type/Reason Admit Date/Time Aug 04, 2016 at 06:27 Initial Consult Date Type of Consultation: IM 24 HR Interval Summary Free Text/Dictation No complaints. Exam/Review of Systems Vital Signs Vitals Vital Signs Date Time Temp Pulse Resp B/P Pulse Ox O2 Delivery O2 Flow Rate FiO2 08/06/16 08:15 97.9 76 18 111/51 93 08/05/16 04:09 Room Air Intake and Output 08/05/16 08/05/16 08/06/16 15:00 23:00 07:00 Intake Total 500 ml 1950 ml 1250 ml Output Total 600 ml 650 ml Balance 500 ml 1350 ml 600 ml Exam Constitutional: alert, oriented Neck: supple, No jvd Respiratory: clear to auscultation Cardiovascular: regular rate and rhythm Extremities: No edema Results Result Diagram: 08/06/16 0425 08/06/16 0425 Results 24 hrs Laboratory Tests Test 08/06/16 04:25 Hemoglobin 8.0 L Hematocrit 23.9 L Sodium Level 131 L Potassium Level 4.0 Chloride Level 106 Carbon Dioxide Level 22 Anion Gap 7 L Blood Urea Nitrogen 18 Creatinine 0.92 Glucose Level 89 Calcium Level 8.0 L Medications Medications Current Medications Miscellaneous Information 1 ea NOTE XX ; Start 08/04/16 at 16:00; Stop 08/08/16 at 15:59 Tramadol HCl (Ultram) 50 mg Q6 PO Last administered on 08/06/16 12:51; Admin Dose 50 MG; Start 08/04/16 at 12:00; Stop 08/07/16 at 11:59 Acetaminophen/ Hydrocodone Bitart ([place] (5/325)) 1 tab Q4H PRN PO PAIN LEVEL 1 -3 Last administered on 08/06/16 09:05; Admin Dose 1 TAB; Start 08/04/16 at 11: 30 Acetaminophen/ Hydrocodone Bitart ([place] (5/325)) 2 tab Q4H PRN PO PAIN LEVEL 4 -7; Start 08/04/16 at 11:30 Hydromorphone HCl (Dilaudid) 1 mg Q3H PRN IV PAIN LEVEL 8-10; Start 08/04/16 at 11:30 Ondansetron HCl (Zofran Inj) 4 mg Q6H PRN IV NAUSEA AND/OR VOMITING; Start at 11:30 Bisacodyl (Dulcolax Supp) 10 mg Q12H PRN [place] CONSTIPATION; Start 08/04/16 at 11: 30 Magnesium Hydroxide (Milk Of Mag) 30 ml BID PRN PO CONSTIPATION Last administered on 08/05/16 21:15; Admin Dose 30 ML; Start 08/04/16 at 11:30 Sodium Biphosphate/ Sodium Phosphate (Fleet Enema) 133 ml DAILY PRN [place] CONSTIPATION; Start 08/04/16 at 11:30 Docusate Sodium (Colace) 100 mg BID PO Last administered on 08/06/16 09:04; Admin Dose 100 MG; Start 08/04/16 at 21:00 Diphenhydramine HCl (Benadryl) 25 mg Q6H PRN PO PRURITUS; Start 08/04/16 at 11: 30 Aspirin (Ecotrin) 325 mg BID PO Last administered on 08/06/16 09:04; Admin Dose 325 MG; Start 08/05/16 at 09:00 Pantoprazole 40 mg 40 mg BID@06,18 PO Last administered on 08/06/16 06:08; Admin Dose 40 MG; Start 08/04/16 at 18:00 Sodium Chloride 1,000 ml @ 50 mls/hr Q20H IV Last administered on 08/06/16 06 :10; Admin Dose 100 MLS/HR; Start 08/04/16 at 14:00 Ferric Sodium Gluconate Complex/ Sodium Chloride (Ferrlecit/NS) 110 ml @ 100 mls/hr Q24H IVPB Last administered on 08/05/16 21:00; Admin Dose 100 MLS/HR; Start 08/05/16 at 20:00; Stop 08/07/16 at 21:05 EMI ARSHAD MD Aug 06, 2016 16:43
[2016-08-06] MEDS: SOD FERRIC GLUC COMPLX 125 MG in SOD CHLORIDE 0.9% 100 ML IVPB SCH (20:44)
[2016-08-07] MEDS: traMADol 50 MG TAB PO SCH ×2 (06:01)
[2016-08-07] MEDS: LEVOTHYROXINE 75 MCG TAB PO SCH (06:01)
[2016-08-07] MEDS: PANTOPRAZOLE (EC) 40 MG TAB PO SCH ×2 (06:01→18:25)
[2016-08-07] MEDS: SOD CHLORIDE 0.9% 1,000 ML IV SCH (06:02)
[2016-08-07] MEDS: MAGNESIUM HYDROXIDE 30ML CUP PO PRN (06:02)
[2016-08-07 06:59] LABS: HEMATOCRIT 24.6 % (37.0-47.0); HEMOGLOBIN 8.3 g/dl (12.0-16.0)
[2016-08-07 07:00] LABS: CALCIUM 8.4 mg/dl (8.4-10.2); CREATININE 0.84 mg/dl (0.44-1.00); POTASSIUM 3.9 mmol/L (3.5-5.1)
[2016-08-07 08:41] VITALS: BP 119/56; RESP 16
[2016-08-07] MEDS: ASPIRIN (EC) 325 MG TAB PO SCH ×2 (09:18→20:33)
[2016-08-07] MEDS: DOCUSATE SODIUM 100 MG CAP PO SCH ×2 (09:18→20:33)
--- NOTE | 2016-08-07 11:03 | CONS ---
Date/Time of Note Date/Time of Note DATE: 08/07/16 TIME: 11:02 Assessment/Plan Assessment/Plan Additional Assessment/Plan 1. S/p right total hip arthroplasty , her blood pressure is in the normal range. 2. Mild hyponatremia, continue IV normal saline 3. Anemia. Hb improved, continueFerrlecit Consultation Date/Type/Reason Admit Date/Time Aug 04, 2016 at 06:27 Type of Consultation: IM 24 HR Interval Summary Free Text/Dictation Alert, no complaints Exam/Review of Systems Vital Signs Vitals Vital Signs Date Time Temp Pulse Resp B/P Pulse Ox O2 Delivery O2 Flow Rate FiO2 08/07/16 08:41 99.1 80 16 119/56 96 08/05/16 04:09 Room Air Intake and Output 08/06/16 08/06/16 08/07/16 15:00 23:00 07:00 Intake Total 1710 ml 740 ml Output Total 800 ml 800 ml Balance 910 ml -60 ml Exam Constitutional: alert Neck: supple, No jvd Respiratory: clear to auscultation Cardiovascular: regular rate and rhythm Gastrointestinal: soft Extremities: No edema Results Result Diagram: 08/07/16 0510 08/07/16 0510 Results 24 hrs Laboratory Tests Test 08/07/16 05:10 Hemoglobin 8.3 L Hematocrit 24.6 L Sodium Level 133 L Potassium Level 3.9 Chloride Level 105 Carbon Dioxide Level 22 Anion Gap 10 Blood Urea Nitrogen 18 Creatinine 0.84 Glucose Level 108 Calcium Level 8.4 Medications Medications Current Medications Miscellaneous Information 1 ea NOTE XX ; Start 08/04/16 at 16:00; Stop 08/08/16 at 15:59 Tramadol HCl (Ultram) 50 mg Q6 PO Last administered on 08/07/16 06:01; Admin Dose 50 MG; Start 08/04/16 at 12:00; Stop 08/07/16 at 11:59 Acetaminophen/ Hydrocodone Bitart ([place] (5/325)) 1 tab Q4H PRN PO PAIN LEVEL 1 -3 Last administered on 08/06/16 09:05; Admin Dose 1 TAB; Start 08/04/16 at 11: 30 Acetaminophen/ Hydrocodone Bitart ([place] (5/325)) 2 tab Q4H PRN PO PAIN LEVEL 4 -7; Start 08/04/16 at 11:30 Hydromorphone HCl (Dilaudid) 1 mg Q3H PRN IV PAIN LEVEL 8-10; Start 08/04/16 at 11:30 Ondansetron HCl (Zofran Inj) 4 mg Q6H PRN IV NAUSEA AND/OR VOMITING; Start at 11:30 Bisacodyl (Dulcolax Supp) 10 mg Q12H PRN [place] CONSTIPATION; Start 08/04/16 at 11: 30 Magnesium Hydroxide (Milk Of Mag) 30 ml BID PRN PO CONSTIPATION Last administered on 08/07/16 06:02; Admin Dose 30 ML; Start 08/04/16 at 11:30 Sodium Biphosphate/ Sodium Phosphate (Fleet Enema) 133 ml DAILY PRN [place] CONSTIPATION; Start 08/04/16 at 11:30 Docusate Sodium (Colace) 100 mg BID PO Last administered on 08/07/16 09:18; Admin Dose 100 MG; Start 08/04/16 at 21:00 Diphenhydramine HCl (Benadryl) 25 mg Q6H PRN PO PRURITUS; Start 08/04/16 at 11: 30 Aspirin (Ecotrin) 325 mg BID PO Last administered on 08/07/16 09:18; Admin Dose 325 MG; Start 08/05/16 at 09:00 Pantoprazole 40 mg 40 mg BID@18 PO Last administered on 08/07/16 06:01; Admin Dose 40 MG; Start 08/04/16 at 18:00 Sodium Chloride 1,000 ml @ 50 mls/hr Q20H IV Last administered on 08/07/16 06 :02; Admin Dose 50 MLS/HR; Start 08/04/16 at 14:00 Ferric Sodium Gluconate Complex/ Sodium Chloride (Ferrlecit/NS) 110 ml @ 100 mls/hr Q24H IVPB Last administered on 08/06/16 20:44; Admin Dose 100 MLS/HR; Start 08/05/16 at 20:00; Stop 08/07/16 at 21:05 EMI ARSHAD MD Aug 07, 2016 11:03
--- NOTE | 2016-08-07 12:58 | PN ---
Date/Time of Note Date/Time of Note DATE: 08/07/16 TIME: 12:57 Assessment/Plan Lines/Catheters IV Catheter Type (from Nrsg): Peripheral IV Goode in Place (from Nrsg): No Assessment/Plan Assessment/Plan POD # 3. Stable. -H/H improved -OOB with PT -Dulcolax suppository -Pain meds -ASA/SCDs -Transfer to [facility] Rehab tomorrow Subjective 24 Hr Interval Summary Resting comfortably. Constipated. Exam/Review of Systems Vital Signs Vitals Vital Signs Date Time Temp Pulse Resp B/P Pulse Ox O2 Delivery O2 Flow Rate FiO2 08/07/16 08:41 99.1 80 16 119/56 96 08/05/16 04:09 Room Air Intake and Output 08/06/16 08/06/16 08/07/16 15:00 23:00 07:00 Intake Total 1710 ml 740 ml Output Total 800 ml 800 ml Balance 910 ml -60 ml Exam Free Text/Dictation Dressing dry Incision clean, dry, and intact without redness or drainage Thigh soft 5/5 Quadriceps, Tibialis Anterior, EHL, Gastroc Soleus, Peroneals Normal sensation Palpable DP/PT, CR < 2 Sec No distal edema Results Result Diagram: 08/07/16 0510 08/07/16 0510 VIOLET MCKENNA MD Aug 07, 2016 12:58
[2016-08-07 19:55] VITALS: BP 139/65; RESP 20
[2016-08-07] MEDS: SOD FERRIC GLUC COMPLX 125 MG in SOD CHLORIDE 0.9% 100 ML IVPB SCH (20:33)
[2016-08-08] MEDS: SOD CHLORIDE 0.9% 1,000 ML IV SCH (03:07)
[2016-08-08] MEDS: PANTOPRAZOLE (EC) 40 MG TAB PO SCH ×2 (06:01→17:09)
[2016-08-08] MEDS: LEVOTHYROXINE 75 MCG TAB PO SCH (06:01)
[2016-08-08 06:26] LABS: HEMATOCRIT 24.3 % (37.0-47.0); HEMOGLOBIN 8.1 g/dl (12.0-16.0)
[2016-08-08 06:44] LABS: CALCIUM 7.8 mg/dl (8.4-10.2); CREATININE 0.74 mg/dl (0.44-1.00); POTASSIUM 3.7 mmol/L (3.5-5.1)
[2016-08-08 08:42] VITALS: BP 143/63; RESP 16
[2016-08-08] MEDS: DOCUSATE SODIUM 100 MG CAP PO SCH (08:44)
[2016-08-08] MEDS: ASPIRIN (EC) 325 MG TAB PO SCH ×2 (08:47→20:02)
--- NOTE | 2016-08-08 08:52 | PN ---
Date/Time of Note Date/Time of Note DATE: 08/08/16 TIME: 08:50 Assessment/Plan Lines/Catheters IV Catheter Type (from Nrsg): Peripheral IV Goode in Place (from Nrsg): Yes (F 14) Assessment/Plan Assessment/Plan Stable, POD #4 -pain meds as needed -ASA/SCDs -OOB with PT -check AM labs -dressing changed -will hold discharge for today until patient feeling better -encouraged hydration -plan to transfer to [facility] tomorrow Subjective 24 Hr Interval Summary No acute overnight events. [place] constipated yesterday and was given medication, now having mild diarrhea. Denies f/c. H&H low but stable. Plan to transfer to [facility] when ready. Exam/Review of Systems Vital Signs Vitals Vital Signs Date Time Temp Pulse Resp B/P Pulse Ox O2 Delivery O2 Flow Rate FiO2 08/08/16 08:42 99.2 73 16 143/63 90 08/05/16 04:09 Room Air Intake and Output 08/07/16 08/07/16 08/08/16 15:00 23:00 07:00 Intake Total 1500 ml 1320 ml Output Total 700 ml 1100 ml Balance 800 ml 220 ml Exam Free Text/Dictation Dressing dry Incision clean, dry, and intact without redness or drainage 5/5 Quadriceps, Tibialis Anterior, EHL, Gastroc, Soleus, Peroneals Normal sensation Palpable DT/PT, CR <2 sec No distal edema Results Result Diagram: 08/08/160 08/08/16 0450 CIERRA HUTTON PA-C Aug 08, 2016 08:52
--- NOTE | 2016-08-08 10:32 | CONS ---
Date/Time of Note Date/Time of Note DATE: 08/08/16 TIME: 10:28 Assessment/Plan Assessment/Plan Chief Complaint/Hosp Course 1. She is 4 days postop a right total hip arthroplasty , her blood pressure is high today and I will restart 1 of her antihypertensive medications. 2. Hyponatremia, her serum sodium is low today at 129. I will discontinue her IV fluid. 3. She does have a history of anemia and iron deficiency and she is iron deficient today. I will order referral is set as iron replacement therapy. 4. Continue physical therapy as tolerated. 5. Urinary retention. I will leave the urethral catheter and today and remove tomorrow. Problems: Consultation Date/Type/Reason Admit Date/Time Aug 04, 2016 at 06:27 Type of Consultation: IM 24 HR Interval Summary Free Text/Dictation The patient complains of having diarrhea all in the evening after receiving stool softeners and a suppository. She also had some problem with urinary retention and had to have a urethral catheter placed and 900 cc of urine was obtained. She is feeling weak today. Exam/Review of Systems Vital Signs Vitals Vital Signs Date Time Temp Pulse Resp B/P Pulse Ox O2 Delivery O2 Flow Rate FiO2 08/08/16 08:42 99.2 73 16 143/63 90 08/05/16 04:09 Room Air Intake and Output 08/07/16 08/07/16 08/08/16 15:00 23:00 07:00 Intake Total 1500 ml 1320 ml Output Total 700 ml 1100 ml Balance 800 ml 220 ml Exam Constitutional: alert, frail, oriented Respiratory: clear to auscultation, normal air movement Cardiovascular: regular rate and rhythm Gastrointestinal: soft Musculoskeletal: nl extremities to inspection Results Result Diagram: 08/08/16 0450 08/08/16 0450 Results 24 hrs Laboratory Tests Test 08/08/16 04:50 Hemoglobin 8.1 L Hematocrit 24.3 L Sodium Level 129 L Potassium Level 3.7 Chloride Level 103 Carbon Dioxide Level 23 Anion Gap 7 L Blood Urea Nitrogen 11 Creatinine 0.74 Glucose Level 95 Calcium Level 7.8 L Medications Medications Current Medications Miscellaneous Information 1 ea NOTE XX ; Start 08/04/16 at 16:00; Stop 08/08/16 at 15:59 Acetaminophen/ Hydrocodone Bitart ([place] (5/325)) 1 tab Q4H PRN PO PAIN LEVEL 1 -3 Last administered on 08/06/16 09:05; Admin Dose 1 TAB; Start 08/04/16 at 11: 30 Acetaminophen/ Hydrocodone Bitart ([place] (5/325)) 2 tab Q4H PRN PO PAIN LEVEL 4 -7; Start 08/04/16 at 11:30 Hydromorphone HCl (Dilaudid) 1 mg Q3H PRN IV PAIN LEVEL 8-10; Start 08/04/16 at 11:30 Ondansetron HCl (Zofran Inj) 4 mg Q6H PRN IV NAUSEA AND/OR VOMITING; Start at 11:30 Bisacodyl (Dulcolax Supp) 10 mg Q12H PRN [place] CONSTIPATION Last administered on 12:29; Admin Dose 10 MG; Start 08/04/16 at 11:30 Magnesium Hydroxide (Milk Of Mag) 30 ml BID PRN PO CONSTIPATION Last administered on 08/07/16 06:02; Admin Dose 30 ML; Start 08/04/16 at 11:30 Sodium Biphosphate/ Sodium Phosphate (Fleet Enema) 133 ml DAILY PRN [place] CONSTIPATION; Start 08/04/16 at 11:30 Docusate Sodium (Colace) 100 mg BID PO Last administered on 08/07/16 09:18; Admin Dose 100 MG; Start 08/04/16 at 21:00 Diphenhydramine HCl (Benadryl) 25 mg Q6H PRN PO PRURITUS; Start 08/04/16 at 11: 30 Aspirin (Ecotrin) 325 mg BID PO Last administered on 08/08/16 08:47; Admin Dose 325 MG; Start 08/05/16 at 09:00 Pantoprazole 40 mg 40 mg BID@06,18 PO Last administered on 08/08/16 06:01; Admin Dose 40 MG; Start 08/04/16 at 18:00 Sodium Chloride (NS) 1,000 ml @ 50 mls/hr Q20H IV Last administered on 03:07; Admin Dose 50 MLS/HR; Start 08/04/16 at 14:00 LAVON BROWN MD Aug 08, 2016 10:32
[2016-08-08 19:26] VITALS: BP 132/60; RESP 18
[2016-08-08] MEDS ORDERED: ZOLPIDEM 5 MG TAB PO PRN (22:00)
[2016-08-09 06:04] LABS: HEMATOCRIT 25.7 % (37.0-47.0); HEMOGLOBIN 8.4 g/dl (12.0-16.0)
[2016-08-09 06:22] LABS: CALCIUM 8.1 mg/dl (8.4-10.2); CREATININE 0.72 mg/dl (0.44-1.00); POTASSIUM 3.6 mmol/L (3.5-5.1)
[2016-08-09] MEDS: PANTOPRAZOLE (EC) 40 MG TAB PO SCH (06:27)
[2016-08-09] MEDS: LEVOTHYROXINE 75 MCG TAB PO SCH (06:27)
[2016-08-09 08:04] VITALS: BP 158/67; RESP 18
[2016-08-09] MEDS: ASPIRIN (EC) 325 MG TAB PO SCH (08:35)
[2016-08-09] MEDS ORDERED: VALSARTAN 160 MG TAB PO SCH (11:00)
[2016-08-09 12:21] VITALS: BP 160/71; PULSE 76
[2016-08-09 13:39] LABS: ADD SCAN DIFF NO
[2016-08-09 13:41] LABS: ABNORMAL IP MESSAGE 1; HEMATOCRIT 27.7 % (37.0-47.0); HEMOGLOBIN 9.4 g/dl (12.0-16.0); MEAN CORPUSCULAR HEMOGLOBIN 29.6 pg (29.0-33.0); MEAN CORPUSCULAR HGB CONC 33.9 g/dl (32.0-37.0); MEAN CORPUSCULAR VOLUME 87.1 fl (82.0-101.0); MEAN PLATELET VOLUME 10.4 fl (7.4-10.4); PLATELET COUNT 269 10^3/UL (140-415); RED BLOOD COUNT 3.18 10^6/ul (4.20-5.40); RED CELL DISTRIBUTION WIDTH 15.9 % (11.5-14.5); WHITE BLOOD COUNT 3.2 10^3/ul (4.8-10.8)
--- NOTE | 2016-08-09 13:46 | CONS ---
Date/Time of Note Date/Time of Note DATE: 08/09/16 TIME: 13:38 Assessment/Plan Assessment/Plan Chief Complaint/Hosp Course 1. She is 5 days postop a right total hip arthroplasty , her blood pressure is high today and I will restart her second blood pressure medication which is amlodipine 10 mg a day. 2. Hyponatremia, her serum sodium is low today at correcting off IV fluid. 3. She does have a history of anemia and iron deficiency and she is iron deficient today. I will order Ferrlicit as iron replacement therapy. 4. Continue physical therapy as tolerated. 5. Urinary retention has resolved and her urethral catheter has been removed. 6. She is cleared to transfer to the [facility] today. I will fill out the med rec and will contact the Dr. orta at the [facility] who is going to follow her. Problems: Consultation Date/Type/Reason Admit Date/Time Aug 04, 2016 at 06:27 Type of Consultation: IM 24 HR Interval Summary Free Text/Dictation She is overall feeling better. She has the urethral catheter out and is voiding. Her diarrhea has resolved. Her blood pressure has been elevated. She then received her dose of valsartan this morning and the blood pressure came down. Constitutional: improved, no complaints Exam/Review of Systems Vital Signs Vitals Vital Signs Date Time Temp Pulse Resp B/P Pulse Ox O2 Delivery O2 Flow Rate FiO2 08/09/16 12:21 76 160/71 08/09/16 10:29 99.1 08/09/16 08:04 18 96 08/08/16 09:00 Nasal Cannula 2.0 Intake and Output 08/08/16 08/08/16 08/09/16 15:00 23:00 07:00 Intake Total 250 ml 1080 ml 200 ml Output Total 1380 ml 650 ml Balance 250 ml -300 ml -450 ml Exam Constitutional: alert, oriented, well developed Respiratory: clear to auscultation, normal air movement Cardiovascular: nl pulses, regular rate and rhythm Gastrointestinal: non-tender, soft Musculoskeletal: nl extremities to inspection Results Result Diagram: 08/09/1641908/09/16419 Results 24 hrs Laboratory Tests Test 08/09/16 04:20 Hemoglobin 8.4 L Hematocrit 25.7 L Sodium Level 132 L Potassium Level 3.6 Chloride Level 105 Carbon Dioxide Level 23 Anion Gap 8 Blood Urea Nitrogen 10 Creatinine 0.72 Glucose Level 91 Calcium Level 8.1 L Medications Medications Current Medications Acetaminophen/ Hydrocodone Bitart ([place] (5/325)) 1 tab Q4H PRN PO PAIN LEVEL 1 -3 Last administered on 08/06/16 09:05; Admin Dose 1 TAB; Start 08/04/16 at 11: 30 Acetaminophen/ Hydrocodone Bitart ([place] (5/325)) 2 tab Q4H PRN PO PAIN LEVEL 4 -7; Start 08/04/16 at 11:30 Hydromorphone HCl (Dilaudid) 1 mg Q3H PRN IV PAIN LEVEL 8-10; Start 08/04/16 at 11:30 Ondansetron HCl (Zofran Inj) 4 mg Q6H PRN IV NAUSEA AND/OR VOMITING; Start at 11:30 Bisacodyl (Dulcolax Supp) 10 mg Q12H PRN [place] CONSTIPATION Last administered on 12:29; Admin Dose 10 MG; Start 08/04/16 at 11:30 Magnesium Hydroxide (Milk Of Mag) 30 ml BID PRN PO CONSTIPATION Last administered on 08/07/16 06:02; Admin Dose 30 ML; Start 08/04/16 at 11:30 Diphenhydramine HCl (Benadryl) 25 mg Q6H PRN PO PRURITUS; Start 08/04/16 at 11: 30 Aspirin (Ecotrin) 325 mg BID PO Last administered on 08/09/16 08:35; Admin Dose 325 MG; Start 08/05/16 at 09:00 Pantoprazole (Protonix Tab) 40 mg BID@18 PO Last administered on 08/09/16 06:27; Admin Dose 40 MG; Start 08/04/16 at 18:00 Valsartan (Diovan) 160 mg DAILY PO Last administered on 08/09/16 10:59; Admin Dose 160 MG; Start 08/09/16 at 11:00 Zolpidem Tartrate (Ambien) 5 mg HS PRN PO SLEEP Last administered on 08/08/16 22:04; Admin Dose 5 MG; Start 08/08/16 at 22:00 LAVON BROWN MD Aug 09, 2016 13:46
[2016-08-09] MEDS ORDERED: AMLODIPINE 10 MG TAB PO SCH (14:00)
[2016-08-09 14:37] LABS: EOSINOPHILS # 0.2 10^3/ul (0.0-0.5); LYMPHOCYTES # 0.7 10^3/ul (0.8-2.9); NEUTROPHIL # 1.3 10^3/ul (1.6-7.5)
--- NOTE | 2016-08-09 17:53 | PN ---
Date/Time of Note Date/Time of Note DATE: 08/09/16 TIME: 17:52 Assessment/Plan Lines/Catheters IV Catheter Type (from Nrsg): Saline [place] in Place (from Nrsg): No Assessment/Plan Assessment/Plan Stable POD #5 -pain meds as needed -ASA/SCDs -OOB with PT -dressing changed -transfer to [facility] today -follow up in the office in 1 week Subjective 24 Hr Interval Summary No acute overnight events. Denies significant pain. Diarrhea improving and feeling better overall. Stable for transfer to [facility] today. Exam/Review of Systems Vital Signs Vitals Vital Signs Date Time Temp Pulse Resp B/P Pulse Ox O2 Delivery O2 Flow Rate FiO2 08/09/16 12:21 76 160/71 08/09/16 10:29 99.1 08/09/16 08:04 18 96 08/08/16 09:00 Nasal Cannula 2.0 Intake and Output 08/08/16 08/08/16 08/09/16 15:00 23:00 07:00 Intake Total 250 ml 1080 ml 200 ml Output Total 1380 ml 650 ml Balance 250 ml -300 ml -450 ml Exam Free Text/Dictation Dressing dry Incision clean, dry, and intact without redness or drainage 5/5 Quadriceps, Tibialis Anterior, EHL, Gastroc, Soleus, Peroneals Normal sensation Palpable DT/PT, CR <2 sec No distal edema Results Result Diagram: 08/09/16 1326 08/09/16 0420 CIERRA HUTTON PA-C Aug 09, 2016 17:53
--- NOTE | 2016-08-10 14:18 | DS ---
DATE OF ADMISSION: 08/04/2016 DATE OF DISCHARGE: 08/09/2016 CONDITION UPON DISCHARGE: Stable. ADMITTING DIAGNOSES: 1. Right hip osteoarthritis. 2. Status post right anterior total hip arthroplasty. 3. Right hip osteonecrosis with osteoarthritic changes. DISCHARGE DIAGNOSIS: Status post right anterior total hip arthroplasty. PROCEDURE PERFORMED: Right anterior total hip arthroplasty. HOSPITAL COURSE: This is an 86-year-old female who presented to clinic complaining of right hip pain. X-rays demonstrated advanced osteonecrosis and osteoarthritis of the right hip and it was thought she would benefit from a right anterior total hip arthroplasty. On 08/04/2016, the patient was admitted and taken to the operating room where she underwent a right anterior total hip arthroplasty. There were no intraoperative complications. The patient tolerated the procedure well. She was taken to the recovery room in stable condition. Pain was well controlled with oral pain medication. She was started on aspirin and SCDs for DVT prophylaxis. She remained hemodynamically stable and neurovascularly intact throughout her hospital stay. She did develop some constipation and was given laxatives and secondarily developed diarrhea. She was monitored for a few additional days and was stable for transfer to the [facility] on postoperative day #5. Prior to transfer, the incision was inspected and noted to be clean, dry and intact. Dressing changes were done prior to patient going to the [facility]. LABORATORY ANALYSIS: Hemoglobin 9.4, hematocrit 27.7. Chemistry panel was within normal limits. DISCHARGE MEDICATIONS: 1. [place] 5/325 mg. 2. Tramadol 50 mg. 3. Protonix 40 mg. 4. Aspirin 325 mg. In addition, the patient is to resume all of her normal home medications. DISCHARGE INSTRUCTIONS: The patient will be transferred to the [facility] in stable condition. She is to resume a normal diet. She is weightbearing as tolerated on the right lower extremity. The patient is to call the office or go to the emergency room for any concerns including increased redness, swelling , drainage or fever or any concern regarding the operation or site of incision. FOLLOWUP: The patient will follow up in the office in 1 week. Dictated By: CIERRA LIU/EDIN Conf#: [id number] DID#: [id number] [facility]ARE HEALTH SYSTEMRochelle
== END 2016-08-09 16:20 | DRG 470 ==
LOC: REC 06:27 → MS1 13:10
PROVIDERS: ADMIT Orthopaedic Surgery; ATTEND Orthopaedic Surgery
PROC: 0SR904A Replacement of Right Hip Joint with Ceramic on Polyethylene Synthetic Substitute, Uncemented, Open Approach (ICD-10-PCS; principal; 2016-08-04 08:30)
DX: M16.11 Unilateral primary osteoarthritis, right hip (principal); E87.1 Hypo-osmolality and hyponatremia; G62.9 Polyneuropathy, unspecified; I10 Essential (primary) hypertension; E03.9 Hypothyroidism, unspecified; R35.1 Nocturia; K21.9 Gastro-esophageal reflux disease without esophagitis; G47.00 Insomnia, unspecified; D50.9 Iron deficiency anemia, unspecified; N32.89 Other specified disorders of bladder
CPT/HCPCS: 72170; 73500; 73530; 80048; 81001; 81003; 82728; 83540; 85014; 85018; 85025; 86850; 86900; 86901; 86920; 87081; 87086; 88304; 88311; 97110; 97116; 97162; 97167; 97530; C1776; C9290; J0171; J0690; J0735; J1100; J1644; J1885; J2250; J2274; J2405; J2710; J2916; J3010; J3370; J7030; J7120

== ENCOUNTER → 2016-08-19 | Outpatient (CLI) | payer MEDICARE, BC ==
[~2016-08-19] MED LIST changes: +AMLO-147 PO; +ASPI325T32 PO; +CITRACAL PO; +HYDR-3498 PO; -PAIN COCKTAIL - VANCOMYCIN IRR ONE; +PANT40TA4 PO; +SOLI5TAB5 PO; +SYN75 PO; +TRAM50TA2 PO; +VALS160T20 PO
== END | disposition home or self-care (01) ==
LOC: HKI 13:26
PROVIDERS: ATTEND Orthopaedic Surgery
DX: Z47.1 Aftercare following joint replacement surgery (principal); Z96.641 Presence of right artificial hip joint; M16.11 Unilateral primary osteoarthritis, right hip

== ENCOUNTER → 2016-09-16 | Outpatient (CLI) | payer MEDICARE, BC ==
[~2016-09-16] MED LIST changes: +ACET-141 PO; +BIOT10004 PO; +SACC250C PO
--- NOTE | 2016-09-16 14:21 | RADRPT ---
PROCEDURE: XR Right hip and pelvis. CLINICAL INDICATION: Right hip pain. Pelvic pain. Postop. TECHNIQUE: Two views. Frontal pelvis and frontal right hip. COMPARISON: 08/04/2016. FINDINGS: There is no fracture or dislocation. Right lateral skin laurie and surgical drain have been removed. There is a right hip total arthroplasty which appears satisfactory. The left hip is grossly normal. There is no lytic or blastic lesion. Surgical clips are noted in the lower abdomen. IMPRESSION: 1. Satisfactory postoperative appearance of the right hip. 2. Grossly normal appearance of the left hip. RPTAT: QQ .Colton Perry MD, MD Date Time Electronically viewed and signed by .Colton Perry MD, MD on 09/16/2016 14:21 .R/
== END | disposition home or self-care (01) ==
LOC: HKI 09:15
PROVIDERS: ATTEND Orthopaedic Surgery
DX: M16.11 Unilateral primary osteoarthritis, right hip (principal); Z47.1 Aftercare following joint replacement surgery; Z96.641 Presence of right artificial hip joint
CPT/HCPCS: 73502